=== PATIENT | male | born 1940 | race Caucasian/White ===

== ENCOUNTER 2016-07-21 17:48 | Inpatient (IN) | payer OTHER ==
[~2016-07-21] VITALS: Ht 167.6 cm; Wt 138.3 kg
[~2016-07-21 17:48] MED LIST: ALBUTEROL2.5 MG/3 M IH; AUGMENTIN875 MG PO; BREO ELLIPTA I1 EACH IH; CLEOCIN300 MG PO; CRESTOR40 MG PO; HYDROCHLOROTHIA25 MG PO; LISINOPRIL-HCT1 EAC3 PO; LISINOPRIL40 MG PO; MELOXICAM7.5 MG PO; METFORMIN HCL500 M1 PO; OXYCODONE-APAP1 EAC6 PO; PREDNISONE50 MG PO; VENTOLIN HFA18 GM IH; ZESTORETIC 20-1 EAC2 PO
[2016-07-21 18:16] LABS: HEMATOCRIT 31.2 % (38.0-50.0); MCH 23.6 PG (29.0-34.0); MCHC 30.1 G/DL (30.0-36.0); MCV 78.4 FL (86-99); MEAN PLAT.VOLUME 10.3 uM^3 (9.0-12.4); NRBC (%) 0.5 /100 WBC (0-0); PLATELET COUNT 354 K/uL (156-360); RBC DIS.WIDTH-SD 50.7 % (39-53); RED BLOOD COUNT 3.98 M/uL (4.00-5.50); WHITE BLOOD COUNT 17.7 K/uL (4.1-10.2)
[2016-07-21 18:29] LABS: CHLORIDE 107 mEq/L (99-109); POTASSIUM 4.5 mEq/L (3.7-5.4); SODIUM 142 mEq/L (136-147)
[2016-07-21 18:31] LABS: GLUCOSE 205 mg/dL (70-99)
[2016-07-21 18:32] LABS: ANION GAP 14 MEQ/L (2-14)
[2016-07-21 18:35] LABS: GFR ESTIMATE (CALCULATED) > 59 mL/min/; UREA NITROGEN (BUN) 69 mg/dL (9-23)
[2016-07-21 18:38] LABS: TROP-I INTERPRETATION NEGATIVE; TROPONIN-I 0.15 ng/mL (0.0-0.30)
[2016-07-21] MEDS ORDERED: CRESTOR40 MG PO (19:29)
[2016-07-21] MEDS ORDERED: OXYCODONE-APAP1 EACH PO (19:30)
[2016-07-21] MEDS ORDERED: NORTRIPTYLINE H50 MG PO (19:32)
[2016-07-21] MEDS ORDERED: PROAIR HFA8.5 GM IH (19:32)
[2016-07-21] MEDS ORDERED: CELEBREX200 MG PO (19:32)
[2016-07-21] MEDS ORDERED: CYMBALTA30 MG PO (19:33)
[2016-07-21 19:44] LABS: D-DIMER ELISA 0.67 mg/L FEU (< 0.57)
[2016-07-21 22:31] LABS: BASE EXCESS 1.9 mEq/L (-3 to +3); BICARBONATE 25.5 mEq/L (22-26); CARBOXY HGB 1.3 % (0-5); METHEMOGLOBIN 1.3 % (0-1.5); PCO2 35 mm Hg (35-45); PO2 67 mm Hg (80-100); pH 7.47 (7.35-7.45)
[2016-07-21 22:33] LABS: DEVICE ROOM AIR; FI02 21 %; SITE LR; TOTAL RESP RATE 16 resp/min
[2016-07-22] VITALS (28 sets, daily range): BP systolic 00–162; BP diastolic 00–140
[2016-07-22 00:51] LABS: HEMATOCRIT 29.4 % (38.0-50.0)
[2016-07-22 01:06] LABS: TOTAL BILIRUBIN 0.5 mg/dL (0.0-1.0)
[2016-07-22 01:07] LABS: ALKALINE PHOSPHATASE 39 IU/L (3-129)
[2016-07-22 01:09] LABS: DIRECT BILIRUBIN 0.2 mg/dL (0.0-0.3)
[2016-07-22 01:10] LABS: LIPASE 7 U/L (1.0-51.0)
[2016-07-22 01:17] LABS: TROP-I INTERPRETATION INDETERMINATE; TROPONIN-I 0.33 ng/mL (0.0-0.30)
[2016-07-22 05:08] LABS: METH RESISTANT S AUREUS PCR NEGATIVE (NEGATIVE)
[2016-07-22 05:35] LABS: TROP-I INTERPRETATION INDETERMINATE; TROPONIN-I 0.32 ng/mL (0.0-0.30)
[2016-07-22 05:41] LABS: PROBE CHECK PASS; SPECIMEN PROCESSING CONTROL PASS
[2016-07-22 05:44] LABS: ANION GAP 9 MEQ/L (2-14); CHLORIDE 107 MEQ/L (99-109); GFR ESTIMATE (CALCULATED) > 59 mL/min/; GLUCOSE 153 mg/dL (70-99); MAGNESIUM 2.4 mg/dl (1.3-2.7); POTASSIUM 5.2 MEQ/L (3.7-5.4); SAMPLE HEMOLYSIS CHECK 0; SAMPLE ICTERIC CHECK 0; SAMPLE LIPEMIA CHECK 0; SODIUM 143 MEQ/L (136-147); UREA NITROGEN (BUN) 70 mg/dL (9-23)
[2016-07-22 05:50] LABS: INTER. NORMALIZED RATIO 1.1; PROTHROMBIN TIME 11.4 (9.2-11.2); PTT 23.6 (25-32)
[2016-07-22 06:38] LABS: EOSINOPHIL (%) 0 % (0-5); HEMATOCRIT 30.8 % (38.0-50.0); IMMATURE GRANULOCYTE (%) 1.4 % (0.0-0.7); IMMATURE GRANULOCYTE COUNT 0.3 K/uL; INSTRUMENT ABS NEUTROPHIL CT 18.5 K/uL; LYMPHOCYTE COUNT 2.3 K/uL (1.0-2.8); MCH 24.7 PG (29.0-34.0); MCHC 31.2 G/DL (30.0-36.0); MCV 79.2 FL (86-99); MEAN PLAT.VOLUME 11.1 uM^3 (9.0-12.4); MONOCYTE (%) 10.6 % (3-12); MONOCYTE COUNT 2.5 K/uL (0-0.8); NEUTROPHIL (%) 78.2 % (45-76); NEUTROPHIL COUNT 18.5 K/uL (1.8-6.4); NRBC (%) 0.4 /100 WBC (0-0); PLATELET COUNT 294 K/uL (156-360); RBC DIS.WIDTH-CV 18.1 % (11.8-14.6); RBC DIS.WIDTH-SD 51.2 % (39-53); RED BLOOD COUNT 3.89 M/uL (4.00-5.50)
[2016-07-22 07:07] LABS: WHITE BLOOD COUNT 23.6 K/uL (4.1-10.2)
[2016-07-22 08:06] LABS: Estimated Average Glucose 134 mg/dL (70-123); HEMOGLOBIN A1c (GLYCOHEMOGLOB) 6.3 % HGB (Below 5.7)
[2016-07-22 12:07] LABS: HEMATOCRIT 25.2 % (38.0-50.0); MCV 80.8 FL (86-99); MEAN PLAT.VOLUME 11.5 uM^3 (9.0-12.4); NRBC (%) 0.7 /100 WBC (0-0); PLATELET COUNT 286 K/uL (156-360); RBC DIS.WIDTH-CV 18.2 % (11.8-14.6); RED BLOOD COUNT 3.12 M/uL (4.00-5.50); WHITE BLOOD COUNT 22.7 K/uL (4.1-10.2)
[2016-07-22 12:13] LABS: POINT-OF-CARE METER ID UU14162636
[2016-07-22 12:38] LABS: TROP-I INTERPRETATION INDETERMINATE; TROPONIN-I 0.32 ng/mL (0.0-0.30)
[2016-07-22 17:56] LABS: HEMATOCRIT 32.7 % (38.0-50.0); MCV 82.2 FL (86-99)
[2016-07-22 18:00] LABS: MCV 81.5 FL (86-99)
[2016-07-22 18:21] LABS: TROP-I INTERPRETATION NEGATIVE; TROPONIN-I 0.27 ng/mL (0.0-0.30)
[2016-07-22 18:31] LABS: POINT-OF-CARE METER ID UU13113803
[2016-07-22 23:17] LABS: HEMATOCRIT 31.5 % (38.0-50.0); MCV 82.9 FL (86-99)
[2016-07-23] VITALS (31 sets, daily range): BP systolic 101–166; BP diastolic 48–120
[2016-07-23 00:25] LABS: POINT-OF-CARE METER ID UU13113803
[2016-07-23 04:53] LABS: HEMATOCRIT 28.1 % (38.0-50.0); MCHC 32.5 G/DL (30.0-36.0); MCV 82.4 FL (86-99); MCV 83.1 FL (86-99); MEAN PLAT.VOLUME 10.8 uM^3 (9.0-12.4); NRBC (%) 1.6 /100 WBC (0-0); PLATELET COUNT 215 K/uL (156-360); RBC DIS.WIDTH-CV 17.9 % (11.8-14.6); RBC DIS.WIDTH-SD 52.9 % (39-53); RED BLOOD COUNT 3.37 M/uL (4.00-5.50); WHITE BLOOD COUNT 22.6 K/uL (4.1-10.2)
[2016-07-23 05:09] LABS: CHLORIDE 117 mEq/L (99-109); POTASSIUM 5.1 mEq/L (3.7-5.4); SODIUM 148 mEq/L (136-147)
[2016-07-23 05:10] LABS: MAGNESIUM 2.2 mg/dL (1.3-2.7)
[2016-07-23 05:11] LABS: GLUCOSE 173 mg/dL (70-99)
[2016-07-23 05:13] LABS: ANION GAP 10 MEQ/L (2-14)
[2016-07-23 05:15] LABS: GFR ESTIMATE (CALCULATED) > 59 mL/min/
[2016-07-23 05:16] LABS: UREA NITROGEN (BUN) 69 mg/dL (9-23)
[2016-07-23 13:01] LABS: HEMATOCRIT 33.8 % (38.0-50.0); MCV 84.3 FL (86-99)
[2016-07-23 13:01] LABS: POINT-OF-CARE METER ID UU14174217
[2016-07-23 18:08] LABS: POINT-OF-CARE METER ID UU14162636
[2016-07-23 18:19] LABS: HEMATOCRIT 32.5 % (38.0-50.0); MCV 84.6 FL (86-99)
[2016-07-23 22:20] LABS: POINT-OF-CARE METER ID UU14162636
[2016-07-23 23:47] LABS: HEMATOCRIT 30.7 % (38.0-50.0); MCV 84.6 FL (86-99)
[2016-07-24] VITALS (9 sets, daily range): BP systolic 100–142; BP diastolic 39–67
[2016-07-24 05:43] LABS: HEMATOCRIT 28.8 % (38.0-50.0); MCH 26.7 PG (29.0-34.0); MCHC 30.9 G/DL (30.0-36.0); MCV 86.5 FL (86-99); MEAN PLAT.VOLUME 11.6 uM^3 (9.0-12.4); NRBC (%) 1.8 /100 WBC (0-0); PLATELET COUNT 172 K/uL (156-360); RBC DIS.WIDTH-CV 18.1 % (11.8-14.6); RBC DIS.WIDTH-SD 55.8 % (39-53); RED BLOOD COUNT 3.33 M/uL (4.00-5.50); WHITE BLOOD COUNT 18.5 K/uL (4.1-10.2)
[2016-07-24 06:06] LABS: ANION GAP 7 MEQ/L (2-14); CHLORIDE 113 MEQ/L (99-109); GFR ESTIMATE (CALCULATED) > 59 mL/min/; GLUCOSE 126 mg/dL (70-99); MAGNESIUM 2.4 mg/dl (1.3-2.7); SAMPLE HEMOLYSIS CHECK 0; SAMPLE ICTERIC CHECK 0; SAMPLE LIPEMIA CHECK 0; SODIUM 146 MEQ/L (136-147); UREA NITROGEN (BUN) 42 mg/dL (9-23)
[2016-07-24 13:22] LABS: POINT-OF-CARE METER ID UU14162636; POINT-OF-CARE USER ID 606021424
[2016-07-24 18:21] LABS: POINT-OF-CARE USER ID 606021424
[2016-07-25] VITALS (12 sets, daily range): BP systolic 111–155; BP diastolic 47–70
[2016-07-25 03:04] LABS: GFR ESTIMATE (CALCULATED) > 59 mL/min/
[2016-07-25 03:31] LABS: VANCOMYCIN, TROUGH 16.7 MCG/ML (10-20)
[2016-07-25 06:09] LABS: HEMATOCRIT 26.3 % (38.0-50.0); MCH 26.8 PG (29.0-34.0); MCHC 30.8 G/DL (30.0-36.0); MCV 87.1 FL (86-99); MEAN PLAT.VOLUME 11.9 uM^3 (9.0-12.4); NRBC (%) 1.5 /100 WBC (0-0); PLATELET COUNT 177 K/uL (156-360); RBC DIS.WIDTH-CV 18.3 % (11.8-14.6); RBC DIS.WIDTH-SD 56.8 % (39-53); RED BLOOD COUNT 3.02 M/uL (4.00-5.50); WHITE BLOOD COUNT 18.1 K/uL (4.1-10.2)
[2016-07-25 06:27] LABS: ANION GAP 7 MEQ/L (2-14); CHLORIDE 110 MEQ/L (99-109); GFR ESTIMATE (CALCULATED) > 59 mL/min/; GLUCOSE 112 mg/dL (70-99); MAGNESIUM 2.5 mg/dl (1.3-2.7); POTASSIUM 4.7 MEQ/L (3.7-5.4); SAMPLE HEMOLYSIS CHECK 0; SAMPLE ICTERIC CHECK 0; SAMPLE LIPEMIA CHECK 0; SODIUM 142 MEQ/L (136-147); UREA NITROGEN (BUN) 31 mg/dL (9-23)
[2016-07-25 12:58] LABS: POINT-OF-CARE METER ID UU14174217
[2016-07-26] VITALS (11 sets, daily range): BP systolic 134–150; BP diastolic 59–79
[2016-07-26 07:20] LABS: MCH 27.6 PG (29.0-34.0); MCHC 31.9 G/DL (30.0-36.0); MCV 86.5 FL (86-99); MEAN PLAT.VOLUME 11.5 uM^3 (9.0-12.4); NRBC (%) 2.5 /100 WBC (0-0); PLATELET COUNT 225 K/uL (156-360); RBC DIS.WIDTH-CV 17.2 % (11.8-14.6); RBC DIS.WIDTH-SD 51.8 % (39-53); WHITE BLOOD COUNT 20.9 K/uL (4.1-10.2)
[2016-07-26 07:35] LABS: ANION GAP 8 MEQ/L (2-14); CHLORIDE 107 MEQ/L (99-109); GFR ESTIMATE (CALCULATED) > 59 mL/min/; GLUCOSE 99 mg/dL (70-99); MAGNESIUM 2.4 mg/dl (1.3-2.7); SAMPLE HEMOLYSIS CHECK 0; SAMPLE ICTERIC CHECK 0; SAMPLE LIPEMIA CHECK 0; SODIUM 141 MEQ/L (136-147); UREA NITROGEN (BUN) 26 mg/dL (9-23)
[2016-07-26 11:33] LABS: POINT-OF-CARE METER ID UU13113725
[2016-07-26 21:03] LABS: POINT-OF-CARE METER ID UU13113725
[2016-07-27 03:20] VITALS: BP 139/67
[2016-07-27 06:25] LABS: POINT-OF-CARE METER ID UU13113725
[2016-07-27 06:36] LABS: HEMATOCRIT 30.8 % (38.0-50.0); MCH 27.1 PG (29.0-34.0); MCHC 30.8 G/DL (30.0-36.0); MCV 87.7 FL (86-99); MEAN PLAT.VOLUME 10.9 uM^3 (9.0-12.4); NRBC (%) 2.7 /100 WBC (0-0); PLATELET COUNT 225 K/uL (156-360); RBC DIS.WIDTH-CV 17.6 % (11.8-14.6); RBC DIS.WIDTH-SD 54.4 % (39-53); RED BLOOD COUNT 3.51 M/uL (4.00-5.50); WHITE BLOOD COUNT 19.2 K/uL (4.1-10.2)
[2016-07-27 07:06] LABS: ANION GAP 8 MEQ/L (2-14); CHLORIDE 109 MEQ/L (99-109); GFR ESTIMATE (CALCULATED) > 59 mL/min/; GLUCOSE 114 mg/dL (70-99); MAGNESIUM 2.2 mg/dl (1.3-2.7); POTASSIUM 4.4 MEQ/L (3.7-5.4); SAMPLE HEMOLYSIS CHECK 0; SAMPLE ICTERIC CHECK 0; SAMPLE LIPEMIA CHECK 0; SODIUM 144 MEQ/L (136-147); UREA NITROGEN (BUN) 22 mg/dL (9-23)
[2016-07-27 07:14] VITALS: BP 158/84
[2016-07-27 11:33] LABS: POINT-OF-CARE METER ID UU13113725
[2016-07-27 16:09] VITALS: BP 139/65
[2016-07-27 16:31] LABS: POINT-OF-CARE METER ID UU13113725
[2016-07-27 19:23] VITALS: BP 143/70
[2016-07-27 23:29] VITALS: BP 141/71
[2016-07-28 06:15] LABS: POINT-OF-CARE METER ID UU13113725
[2016-07-28 06:56] LABS: HEMATOCRIT 33.6 % (38.0-50.0); MCH 26.4 PG (29.0-34.0); MCHC 30.1 G/DL (30.0-36.0); MEAN PLAT.VOLUME 10.7 uM^3 (9.0-12.4); PLATELET COUNT 258 K/uL (156-360); RBC DIS.WIDTH-CV 17.3 % (11.8-14.6); RBC DIS.WIDTH-SD 53.8 % (39-53); RED BLOOD COUNT 3.82 M/uL (4.00-5.50); WHITE BLOOD COUNT 18.4 K/uL (4.1-10.2)
[2016-07-28 07:14] LABS: ANION GAP 8 MEQ/L (2-14); CHLORIDE 107 MEQ/L (99-109); GFR ESTIMATE (CALCULATED) > 59 mL/min/; GLUCOSE 115 mg/dL (70-99); MAGNESIUM 2.3 mg/dl (1.3-2.7); POTASSIUM 3.7 MEQ/L (3.7-5.4); SAMPLE HEMOLYSIS CHECK 0; SAMPLE ICTERIC CHECK 0; SAMPLE LIPEMIA CHECK 0; SODIUM 143 MEQ/L (136-147); UREA NITROGEN (BUN) 17 mg/dL (9-23)
[2016-07-28 08:16] VITALS: BP 146/83
[2016-07-28] MEDS ORDERED: LOPRESSOR25 MG PO (11:02)
[2016-07-28] MEDS ORDERED: PANTOPRAZOLE SO40 MG PO (11:02)
== END 2016-07-28 13:31 | disposition home health service (06) | DRG 871 ==
LOC: EME 17:48 → 4WEST 07-22 00:01 → 5EAST 07-22 00:01 → EDOF 07-22 00:01 → 4WEST 07-22 02:49 → 5EAST 07-25 14:32
PROVIDERS: Emergency Medicine; Hospitalist; Internal Medicine; Internal Medicine Critical Care Medicine; Internal Medicine Gastroenterology; Internal Medicine Nephrology
DX: A41.9 Sepsis, unspecified organism (principal); K31.82 Dieulafoy lesion (hemorrhagic) of stomach and duodenum; I10 Essential (primary) hypertension; I89.0 Lymphedema, not elsewhere classified; K26.4 Chronic or unspecified duodenal ulcer with hemorrhage; Z68.42 Body mass index [BMI] 45.0-49.9, adult; J44.9 Chronic obstructive pulmonary disease, unspecified; E11.8 Type 2 diabetes mellitus with unspecified complications; J45.901 Unspecified asthma with (acute) exacerbation; N28.1 Cyst of kidney, acquired; I95.9 Hypotension, unspecified; E66.01 Morbid (severe) obesity due to excess calories; K92.1 Melena; E78.5 Hyperlipidemia, unspecified; I71.4 Abdominal aortic aneurysm, without rupture; I65.22 Occlusion and stenosis of left carotid artery; E87.0 Hyperosmolality and hypernatremia; E87.5 Hyperkalemia; E86.1 Hypovolemia; D23.70 Other benign neoplasm of skin of unspecified lower limb, including hip; F17.210 Nicotine dependence, cigarettes, uncomplicated; E55.9 Vitamin D deficiency, unspecified; I87.2 Venous insufficiency (chronic) (peripheral); D53.9 Nutritional anemia, unspecified; R55 Syncope and collapse; D72.829 Elevated white blood cell count, unspecified; K21.9 Gastro-esophageal reflux disease without esophagitis; G89.29 Other chronic pain; M54.9 Dorsalgia, unspecified; I25.10 Atherosclerotic heart disease of native coronary artery without angina pectoris; K42.9 Umbilical hernia without obstruction or gangrene; B95.8 Unspecified staphylococcus as the cause of diseases classified elsewhere; M17.0 Bilateral primary osteoarthritis of knee; Z91.14 Patient's other noncompliance with medication regimen; I25.2 Old myocardial infarction
CPT/HCPCS: 36600; 70450; 71010; 71275; 73560; 74176; 80048; 80076; 80202; 81003; 82272; 82565; 82803; 82948; 83036; 83690; 83735; 83880; 84100; 84484; 85014; 85018; 85025; 85027; 85379; 85610; 85730; 86900; 86901; 86920; 87040; 87077; 87186; 87641; 87801; 93005; 93306; 93970; 94640 76; 94760; 94799; 97530 GO; 97530 GP; 99202; 99281; 99283; A6212; C9113; J0456; J1815; J2270; J2765; J2920; J2930; J3370; J7030; J7040; J7050; J7070; J7512; P9016

== ENCOUNTER 2017-06-30 18:57 | Inpatient (IN) | payer OTHER ==
[~2017-06-30] VITALS: Ht 172.7 cm; Wt 135.8 kg
[~2017-06-30 18:57] MED LIST changes: +CELEBREX200 MG PO; +CYMBALTA30 MG PO; +LOPRESSOR25 MG PO; +NORTRIPTYLINE H50 MG PO; +OXYCODONE-APAP1 EACH PO; +PANTOPRAZOLE SO40 MG PO
[2017-06-30 19:38] LABS: HEMATOCRIT 38.3 % (38.0-50.0); HEMOGLOBIN 11.8 G/DL (12.5-16.6); MCH 23.6 PG (29.0-34.0); MCHC 30.8 G/DL (30.0-36.0); MCV 76.6 FL (86-99); PLATELET COUNT 360 K/uL (156-360); RBC DIS.WIDTH-CV 20.3 % (11.8-14.6); RBC DIS.WIDTH-SD 55.4 % (39-53)
[2017-06-30 20:02] LABS: TROP-I INTERPRETATION NEGATIVE; TROPONIN-I < 0.01 ng/mL (0.0-0.30)
[2017-06-30 20:07] LABS: ALBUMIN 3.9 g/dL (3.2-4.8); CHLORIDE 101 mEq/L (99-109); POTASSIUM 4.7 mEq/L (3.7-5.4); SODIUM 140 mEq/L (136-147)
[2017-06-30 20:09] LABS: GLUCOSE 149 mg/dL (70-99); TOTAL PROTEIN 6.9 g/dL (6.4-8.3)
[2017-06-30 20:11] LABS: TOTAL BILIRUBIN 0.4 mg/dL (0.0-1.0)
[2017-06-30 20:13] LABS: ALKALINE PHOSPHATASE 67 IU/L (3-129); GFR ESTIMATE (CALCULATED) > 59 mL/min/ (58.99-99999)
[2017-06-30 20:14] LABS: UREA NITROGEN (BUN) 17 mg/dL (9-23)
[2017-06-30 20:15] LABS: AST (GOT) 14 IU/L (2-34)
[2017-06-30 20:16] LABS: ALT (GPT) 15 IU/L (3-49)
[2017-06-30] MEDS ORDERED: AQUAPHOR OINTM105 GM TP (21:35)
[2017-06-30] MEDS ORDERED: COLACE100 MG PO (21:36)
[2017-06-30] MEDS ORDERED: COLD-FLU RELIE295 ML PO (21:43)
[2017-06-30] MEDS ORDERED: VITAMIN D2000 UNI1 PO (21:44)
[2017-06-30] MEDS ORDERED: METFORMIN HCL500 MG PO ×2 (21:48→21:49)
[2017-07-01 02:17] VITALS: BP 119/86
[2017-07-01 05:46] LABS: BASOPHIL (%) 0.2 % (0-1); EOSINOPHIL (%) 0 % (0-5); HEMATOCRIT 35.2 % (38.0-50.0); HEMOGLOBIN 10.7 G/DL (12.5-16.6); IMMATURE GRANULOCYTE (%) 0.8 % (0.0-0.7); LYMPHOCYTE (%) 2.5 % (15-42); LYMPHOCYTE COUNT 0.5 K/uL (1.0-2.8); MCH 23.1 PG (29.0-34.0); MCHC 30.4 G/DL (30.0-36.0); MONOCYTE (%) 5.7 % (3-12); MONOCYTE COUNT 1.2 K/uL (0-0.8); NEUTROPHIL (%) 90.8 % (45-76); NEUTROPHIL COUNT 19.6 K/uL (1.8-6.4); PLATELET COUNT 315 K/uL (156-360); RBC DIS.WIDTH-CV 20.3 % (11.8-14.6); RBC DIS.WIDTH-SD 54.8 % (39-53); RED BLOOD COUNT 4.63 M/uL (4.00-5.50); WHITE BLOOD COUNT 21.5 K/uL (4.1-10.2)
[2017-07-01 06:13] LABS: TROP-I INTERPRETATION NEGATIVE; TROPONIN-I < 0.01 ng/mL (0.0-0.30)
[2017-07-01 06:14] LABS: CHLORIDE 102 MEQ/L (99-109); CREATININE 0.8 MG/DL (0.6-1.3); GFR ESTIMATE (CALCULATED) > 59 mL/min/ (58.99-99999); GLUCOSE 131 mg/dL (70-99); POTASSIUM 4.3 MEQ/L (3.7-5.4); SODIUM 141 MEQ/L (136-147); UREA NITROGEN (BUN) 15 mg/dL (9-23)
[2017-07-01 07:30] VITALS: BP 146/61
[2017-07-01 11:57] VITALS: BP 124/59
[2017-07-01 16:20] VITALS: BP 136/62
[2017-07-01 19:45] VITALS: BP 153/65
[2017-07-01 23:00] VITALS: BP 133/63
[2017-07-02] VITALS (7 sets, daily range): BP systolic 126–150; BP diastolic 66–81
[2017-07-02 06:32] LABS: CHLORIDE 108 MEQ/L (99-109); CREATININE 0.8 MG/DL (0.6-1.3); GFR ESTIMATE (CALCULATED) > 59 mL/min/ (58.99-99999); GLUCOSE 147 mg/dL (70-99); POTASSIUM 4.1 MEQ/L (3.7-5.4); SODIUM 142 MEQ/L (136-147); UREA NITROGEN (BUN) 14 mg/dL (9-23)
[2017-07-02 06:37] LABS: BASOPHIL (%) 0.1 % (0-1); EOSINOPHIL (%) 0 % (0-5); HEMATOCRIT 36.3 % (38.0-50.0); HEMOGLOBIN 11.1 G/DL (12.5-16.6); IMMATURE GRANULOCYTE (%) 1.4 % (0.0-0.7); LYMPHOCYTE (%) 5.4 % (15-42); LYMPHOCYTE COUNT 0.8 K/uL (1.0-2.8); MCH 23.2 PG (29.0-34.0); MCHC 30.6 G/DL (30.0-36.0); MCV 75.9 FL (86-99); MONOCYTE (%) 4.1 % (3-12); MONOCYTE COUNT 0.6 K/uL (0-0.8); NEUTROPHIL COUNT 12.8 K/uL (1.8-6.4); PLATELET COUNT 325 K/uL (156-360); RBC DIS.WIDTH-CV 20.8 % (11.8-14.6); RBC DIS.WIDTH-SD 55.8 % (39-53); RED BLOOD COUNT 4.78 M/uL (4.00-5.50); WHITE BLOOD COUNT 14.4 K/uL (4.1-10.2)
[2017-07-03 03:58] VITALS: BP 140/67
[2017-07-03 07:08] VITALS: BP 136/65
[2017-07-03 11:30] VITALS: BP 132/66
[2017-07-03 12:18] LABS: HEMATOCRIT 37.6 % (38.0-50.0); HEMOGLOBIN 11.2 G/DL (12.5-16.6); MCH 22.9 PG (29.0-34.0); MCHC 29.8 G/DL (30.0-36.0); MCV 76.7 FL (86-99); PLATELET COUNT 355 K/uL (156-360); RBC DIS.WIDTH-CV 21.1 % (11.8-14.6); RBC DIS.WIDTH-SD 57.3 % (39-53); WHITE BLOOD COUNT 19.2 K/uL (4.1-10.2)
[2017-07-03 15:00] VITALS: BP 137/87
[2017-07-03 19:55] VITALS: BP 157/74
[2017-07-03 22:46] VITALS: BP 146/70
[2017-07-04 06:32] LABS: HEMATOCRIT 36.2 % (38.0-50.0); HEMOGLOBIN 10.8 G/DL (12.5-16.6); MCH 23.1 PG (29.0-34.0); MCHC 29.8 G/DL (30.0-36.0); MCV 77.5 FL (86-99); PLATELET COUNT 335 K/uL (156-360); RBC DIS.WIDTH-CV 20.9 % (11.8-14.6); RBC DIS.WIDTH-SD 56.6 % (39-53); RED BLOOD COUNT 4.67 M/uL (4.00-5.50); WHITE BLOOD COUNT 15.9 K/uL (4.1-10.2)
[2017-07-04 07:12] LABS: ALBUMIN 3.1 G/DL (3.2-4.8); CHLORIDE 104 MEQ/L (99-109); CREATININE 0.8 MG/DL (0.6-1.3); GFR ESTIMATE (CALCULATED) > 59 mL/min/ (58.99-99999); PHOSPHORUS 3.2 mg/dL (2.5-4.9); SODIUM 143 MEQ/L (136-147); UREA NITROGEN (BUN) 19 mg/dL (9-23)
[2017-07-04 07:15] LABS: GLUCOSE 80 mg/dL (70-99); POTASSIUM 7.4 MEQ/L (3.7-5.4)
[2017-07-04 07:25] VITALS: BP 146/68
[2017-07-04 11:14] VITALS: BP 118/58
[2017-07-04 16:47] VITALS: BP 152/65
[2017-07-04 20:24] VITALS: BP 165/76
[2017-07-04 23:48] VITALS: BP 168/73
[2017-07-05 03:27] VITALS: BP 145/83
[2017-07-05 05:59] LABS: BASOPHIL (%) 0.7 % (0-1); BASOPHIL COUNT 0.1 K/uL (0-0.1); EOSINOPHIL (%) 1.5 % (0-5); EOSINOPHIL COUNT 0.1 K/uL (0-0.3); HEMOGLOBIN 10.5 G/DL (12.5-16.6); IMMATURE GRANULOCYTE (%) 3.7 % (0.0-0.7); LYMPHOCYTE (%) 28.8 % (15-42); LYMPHOCYTE COUNT 2.4 K/uL (1.0-2.8); MCH 22.9 PG (29.0-34.0); MCV 76.4 FL (86-99); MONOCYTE (%) 10.8 % (3-12); MONOCYTE COUNT 0.9 K/uL (0-0.8); NEUTROPHIL (%) 54.5 % (45-76); NEUTROPHIL COUNT 4.6 K/uL (1.8-6.4); NRBC (%) 0.2 /100 WBC (0-0); PLATELET COUNT 323 K/uL (156-360); RBC DIS.WIDTH-CV 20.5 % (11.8-14.6); RBC DIS.WIDTH-SD 55.9 % (39-53); RED BLOOD COUNT 4.58 M/uL (4.00-5.50); WHITE BLOOD COUNT 8.4 K/uL (4.1-10.2)
[2017-07-05 06:20] LABS: ALBUMIN 3.2 G/DL (3.2-4.8); CHLORIDE 106 MEQ/L (99-109); CREATININE 0.9 MG/DL (0.6-1.3); GFR ESTIMATE (CALCULATED) > 59 mL/min/ (58.99-99999); POTASSIUM 3.6 MEQ/L (3.7-5.4); SODIUM 144 MEQ/L (136-147); UREA NITROGEN (BUN) 16 mg/dL (9-23)
[2017-07-05 06:27] LABS: GLUCOSE 115 mg/dL (70-99)
[2017-07-05 07:06] VITALS: BP 135/71
[2017-07-05 11:00] VITALS: BP 128/68
[2017-07-05 15:25] VITALS: BP 140/66
[2017-07-05 19:00] VITALS: BP 148/65
[2017-07-05 23:05] VITALS: BP 129/58
[2017-07-06 03:34] VITALS: BP 142/67
[2017-07-06 07:10] VITALS: BP 137/62
[2017-07-06] MEDS ORDERED: AMOXICILLIN875 MG PO (07:55)
== END 2017-07-06 11:33 | disposition home health service (06) | DRG 872 ==
LOC: EME 18:57 → EDOF 22:57 → 2EAST 22:57 → 4EAST 22:57 → ENRESERV 23:01 → 2EAST 07-01 01:37 → ENRESERV 07-01 12:56 → 4EAST 07-01 19:51 → ENRESERV 07-03 20:25 → 2EAST 07-03 22:28 → ENPENDDIS 07-06 → 2EAST 07-06 11:33
PROVIDERS: Emergency Medicine Emergency Medical Services; Family Medicine; Internal Medicine; Internal Medicine Gastroenterology; Physician Assistant; Student in an Organized Health Care Education/Training Program
DX: A40.1 Sepsis due to streptococcus, group B (principal); J44.1 Chronic obstructive pulmonary disease with (acute) exacerbation; L03.116 Cellulitis of left lower limb; L03.115 Cellulitis of right lower limb; E66.01 Morbid (severe) obesity due to excess calories; I83.015 Varicose veins of right lower extremity with ulcer other part of foot; L97.518 Non-pressure chronic ulcer of other part of right foot with other specified severity; I83.018 Varicose veins of right lower extremity with ulcer other part of lower leg; L97.818 Non-pressure chronic ulcer of other part of right lower leg with other specified severity; E78.5 Hyperlipidemia, unspecified; Z68.42 Body mass index [BMI] 45.0-49.9, adult; J44.0 Chronic obstructive pulmonary disease with (acute) lower respiratory infection; J20.9 Acute bronchitis, unspecified; I89.0 Lymphedema, not elsewhere classified; Z87.11 Personal history of peptic ulcer disease; D64.9 Anemia, unspecified; F17.200 Nicotine dependence, unspecified, uncomplicated; I10 Essential (primary) hypertension; R09.02 Hypoxemia; J98.11 Atelectasis; Z74.01 Bed confinement status; Z91.19 Patient's noncompliance with other medical treatment and regimen; K21.9 Gastro-esophageal reflux disease without esophagitis; Z79.899 Other long term (current) drug therapy; Z79.84 Long term (current) use of oral hypoglycemic drugs; E11.622 Type 2 diabetes mellitus with other skin ulcer
CPT/HCPCS: 71045; 71275; 80048; 80053; 80069; 81003; 82948; 83605; 83690; 83880; 84132 91; 84295; 84484; 85025; 85027; 87040; 87070; 87077; 87186; 87205; 87449; 87641; 87801; 93005; 94640; 94640 76; 94760; 94799; 97530 GO; 99202; 99212; 99281; 99285; A6212; J0456; J1644; J1815; J2540; J2930; J3370; J7030; J7040; J7050

== ENCOUNTER 2017-11-01 07:46 | Inpatient (IN) | payer OTHER ==
[~2017-11-01] VITALS: Ht 172.7 cm; Wt 132.3 kg
[~2017-11-01 07:46] MED LIST changes: +AMOXICILLIN875 MG PO; +AQUAPHOR OINTM105 GM TP; +COLACE100 MG PO; +COLD-FLU RELIE295 ML PO; +VITAMIN D2000 UNI1 PO
[2017-11-01 07:54] LABS: COMMENTS - BLOOD GASES A+C+; CONTINUOUS POS AIRWAY PRESSURE 5 cm H2O; DEVICE 840 MASK; FI02 70 %; MODE SPONT; PRES. SUPPORT 13 CM/H2O; SITE RR; TOTAL RESP RATE 32 resp/min; pH 7.38 (7.35-7.45)
[2017-11-01 07:55] LABS: BASE EXCESS 1.1 mEq/L (-3 to +3); BICARBONATE 26.6 mEq/L (22-26); CARBOXY HGB 0.4 % (0-5); METHEMOGLOBIN 0.8 % (0-1.5); PCO2 45 mm Hg (35-45); PO2 175 mm Hg (80-100)
[2017-11-01 08:43] LABS: BASOPHIL (%) 0.2 % (0-1); BASOPHIL COUNT 0.1 K/uL (0-0.1); EOSINOPHIL (%) 0 % (0-5); HEMATOCRIT 36.7 % (38.0-50.0); HEMOGLOBIN 11.3 G/DL (12.5-16.6); IMMATURE GRANULOCYTE (%) 0.9 % (0.0-0.7); LYMPHOCYTE (%) 1.8 % (15-42); LYMPHOCYTE COUNT 0.5 K/uL (1.0-2.8); MCH 23.1 PG (29.0-34.0); MCHC 30.8 G/DL (30.0-36.0); MCV 75.1 FL (86-99); MONOCYTE (%) 5.1 % (3-12); MONOCYTE COUNT 1.3 K/uL (0-0.8); NEUTROPHIL COUNT 22.7 K/uL (1.8-6.4); PLATELET COUNT 357 K/uL (156-360); RBC DIS.WIDTH-CV 19.7 % (11.8-14.6); RBC DIS.WIDTH-SD 51.9 % (39-53); RED BLOOD COUNT 4.89 M/uL (4.00-5.50); WHITE BLOOD COUNT 24.6 K/uL (4.1-10.2)
[2017-11-01 08:49] LABS: INTER. NORMALIZED RATIO 1.2
[2017-11-01 08:51] LABS: PTT 26.3 SEC (25-37)
[2017-11-01 08:53] LABS: ALBUMIN 3.9 g/dL (3.2-4.8); CHLORIDE 100 mEq/L (99-109); POTASSIUM 4.7 mEq/L (3.7-5.4); SODIUM 139 mEq/L (136-147)
[2017-11-01 08:55] LABS: GLUCOSE 157 mg/dL (70-99)
[2017-11-01 08:55] LABS: APPEARANCE SL.HAZY ((CLEAR)); BILIRUBIN NEGATIVE; BLOOD LARGE; COLOR YELLOW ((YELLOW)); GLUCOSE (STRIP) NEGATIVE; KETONES NEGATIVE; LEUKOCYTES NEGATIVE; NITRITE NEGATIVE; PROTEIN (STRIP) 100; SPECIFIC GRAVITY 1.021 (1.000-1.030); UROBILINOGEN 0.2 MG/DL (0.2-1.0)
[2017-11-01 08:56] LABS: TOTAL PROTEIN 7.2 g/dL (6.4-8.3)
[2017-11-01 08:57] LABS: TOTAL BILIRUBIN 0.5 mg/dL (0.0-1.0)
[2017-11-01 08:59] LABS: ALKALINE PHOSPHATASE 57 IU/L (3-129); CREATININE 1.2 mg/dL (0.6-1.3); GFR ESTIMATE (CALCULATED) > 59 mL/min/ (58.99-99999)
[2017-11-01 09:02] LABS: ALT (GPT) 19 IU/L (3-49); TOTAL CK 1719 IU/L (1-294)
[2017-11-01 09:03] LABS: CREATINE KINASE 1719 IU/L (1-294)
[2017-11-01 09:05] LABS: TROP-I INTERPRETATION NEGATIVE; TROPONIN-I < 0.01 ng/mL (0.0-0.30)
[2017-11-01 09:09] LABS: CK-MB 9.1 ng/mL (0.0-4.9); CKMB RELATIVE INDEX 0.5 (0.0-3.9)
[2017-11-01 09:10] LABS: BACTERIA NONE SEEN /HPF; EPITHELIAL CELLS NONE SEEN /HPF; MUCUS TRACE /LPF; RED BLOOD CELLS TNTC /HPF (0-5); UCUL ADDED? YES; WHITE BLOOD CELLS 0-5 /HPF (0-5)
[2017-11-01 09:52] LABS: UREA NITROGEN (BUN) 21 mg/dL (9-23)
[2017-11-01 10:04] LABS: AST (GOT) 35 IU/L (2-34)
[2017-11-01] MEDS ORDERED: PROTONIX40 MG PO (10:12)
[2017-11-01] MEDS ORDERED: SYMBICORT60 INHALAT IH (10:14)
[2017-11-01 12:00] VITALS: BP 134/79
[2017-11-01 15:34] VITALS: BP 140/68
[2017-11-01 20:20] VITALS: BP 132/67
[2017-11-02 01:00] VITALS: BP 140/60
[2017-11-02 04:30] VITALS: BP 134/69
[2017-11-02 08:40] VITALS: BP 125/69
[2017-11-02 09:00] LABS: BASOPHIL (%) 0.1 % (0-1); EOSINOPHIL (%) 0 % (0-5); HEMATOCRIT 33.7 % (38.0-50.0); HEMOGLOBIN 10.3 G/DL (12.5-16.6); LYMPHOCYTE (%) 3.5 % (15-42); LYMPHOCYTE COUNT 0.7 K/uL (1.0-2.8); MCHC 30.6 G/DL (30.0-36.0); MCV 75.2 FL (86-99); MONOCYTE (%) 6.3 % (3-12); MONOCYTE COUNT 1.3 K/uL (0-0.8); NEUTROPHIL (%) 89.1 % (45-76); NEUTROPHIL COUNT 18.7 K/uL (1.8-6.4); PLATELET COUNT 300 K/uL (156-360); RBC DIS.WIDTH-CV 19.8 % (11.8-14.6); RBC DIS.WIDTH-SD 52.8 % (39-53); RED BLOOD COUNT 4.48 M/uL (4.00-5.50)
[2017-11-02 09:32] LABS: CHLORIDE 105 MEQ/L (99-109); CREATININE 0.9 MG/DL (0.6-1.3); GFR ESTIMATE (CALCULATED) > 59 mL/min/ (58.99-99999); GLUCOSE 127 mg/dL (70-99); POTASSIUM 4.7 MEQ/L (3.7-5.4); SODIUM 142 MEQ/L (136-147); UREA NITROGEN (BUN) 16 mg/dL (9-23)
[2017-11-02 09:36] LABS: CREATINE KINASE 1634 IU/L (1-294)
[2017-11-02 11:50] VITALS: BP 125/64
[2017-11-02 15:59] VITALS: BP 151/81
[2017-11-02 20:30] VITALS: BP 184/75
[2017-11-03] VITALS (8 sets, daily range): BP systolic 134–155; BP diastolic 69–84
[2017-11-03 05:30] LABS: BASOPHIL (%) 0.2 % (0-1); EOSINOPHIL (%) 0 % (0-5); HEMATOCRIT 33.9 % (38.0-50.0); HEMOGLOBIN 10.1 G/DL (12.5-16.6); IMMATURE GRANULOCYTE (%) 1.4 % (0.0-0.7); LYMPHOCYTE (%) 4.3 % (15-42); LYMPHOCYTE COUNT 0.8 K/uL (1.0-2.8); MCH 22.5 PG (29.0-34.0); MCHC 29.8 G/DL (30.0-36.0); MCV 75.7 FL (86-99); MONOCYTE (%) 5.2 % (3-12); MONOCYTE COUNT 0.9 K/uL (0-0.8); NEUTROPHIL (%) 88.9 % (45-76); NEUTROPHIL COUNT 15.7 K/uL (1.8-6.4); NRBC (%) 0.1 /100 WBC (0-0); PLATELET COUNT 326 K/uL (156-360); RBC DIS.WIDTH-CV 19.9 % (11.8-14.6); RBC DIS.WIDTH-SD 53.3 % (39-53); RED BLOOD COUNT 4.48 M/uL (4.00-5.50); WHITE BLOOD COUNT 17.6 K/uL (4.1-10.2)
[2017-11-03 06:16] LABS: CHLORIDE 108 MEQ/L (99-109); CREATININE 0.9 MG/DL (0.6-1.3); GFR ESTIMATE (CALCULATED) > 59 mL/min/ (58.99-99999); GLUCOSE 151 mg/dL (70-99); POTASSIUM 4.8 MEQ/L (3.7-5.4); SODIUM 142 MEQ/L (136-147); UREA NITROGEN (BUN) 22 mg/dL (9-23)
[2017-11-04] VITALS (7 sets, daily range): BP systolic 145–184; BP diastolic 75–95
[2017-11-05 05:47] LABS: HEMATOCRIT 36.5 % (38.0-50.0); HEMOGLOBIN 10.7 G/DL (12.5-16.6); MCH 22.3 PG (29.0-34.0); MCHC 29.3 G/DL (30.0-36.0); NRBC (%) 0.3 /100 WBC (0-0); PLATELET COUNT 368 K/uL (156-360); RBC DIS.WIDTH-CV 20.2 % (11.8-14.6); RBC DIS.WIDTH-SD 53.8 % (39-53); WHITE BLOOD COUNT 16.5 K/uL (4.1-10.2)
[2017-11-05 06:19] LABS: CHLORIDE 108 MEQ/L (99-109); CREATININE 0.9 MG/DL (0.6-1.3); GFR ESTIMATE (CALCULATED) > 59 mL/min/ (58.99-99999); POTASSIUM 4.2 MEQ/L (3.7-5.4); SODIUM 146 MEQ/L (136-147); UREA NITROGEN (BUN) 22 mg/dL (9-23)
[2017-11-05 06:22] LABS: GLUCOSE 90 mg/dL (70-99)
[2017-11-05 07:00] LABS: ABS NEUTROPHIL COUNT 13.6; ANISOCYTOSIS 1+; BAND NEUTROPHILS 5.2 % (0-8.0); EOSINOPHIL ABS CT 0; HYPOCHROMASIA 1+; LYMPHOCYTES 9.6 % (15.0-45.0); MONOCYTES 6.1 % (0-9.0); MYELOCYTES 1.7 %; PLAT.SUFFICIENCY DECREASED; SEG.NEUTROPHILS 77.4 % (46.0-76.0)
[2017-11-05 07:20] VITALS: BP 185/79
[2017-11-05 13:56] VITALS: BP 148/76
[2017-11-05 20:09] VITALS: BP 170/75
[2017-11-06] VITALS: BP 173/84
[2017-11-06 04:51] VITALS: BP 160/72
[2017-11-06 06:05] LABS: HEMATOCRIT 33.6 % (38.0-50.0); HEMOGLOBIN 10.4 G/DL (12.5-16.6); MCH 23.1 PG (29.0-34.0); MCV 74.7 FL (86-99); NRBC (%) 0.4 /100 WBC (0-0); PLATELET COUNT 348 K/uL (156-360); RBC DIS.WIDTH-CV 19.8 % (11.8-14.6); RBC DIS.WIDTH-SD 51.8 % (39-53); WHITE BLOOD COUNT 16.4 K/uL (4.1-10.2)
[2017-11-06 06:23] LABS: CHLORIDE 102 MEQ/L (99-109); CREATININE 0.9 MG/DL (0.6-1.3); GFR ESTIMATE (CALCULATED) > 59 mL/min/ (58.99-99999); GLUCOSE 104 mg/dL (70-99); POTASSIUM 4.2 MEQ/L (3.7-5.4); SODIUM 142 MEQ/L (136-147); UREA NITROGEN (BUN) 16 mg/dL (9-23)
[2017-11-06 06:29] LABS: ABS NEUTROPHIL COUNT 11.8; ANISOCYTOSIS 1+; ATYPICAL LYMPHOCYTE 4.4 %; BAND NEUTROPHILS 1.8 % (0-8.0); EOSINOPHIL ABS CT 0.3; EOSINOPHILS 1.8 % (0-5.0); LYMPHOCYTES 8.8 % (15.0-45.0); METAMYELOCYTES 0.9 %; MICROCYTOSIS 1+; MYELOCYTES 4.4 %; PLAT.SUFFICIENCY ADEQUATE; SEG.NEUTROPHILS 69.9 % (46.0-76.0)
[2017-11-06 07:47] VITALS: BP 146/79
[2017-11-06 12:00] VITALS: BP 142/79
[2017-11-06 19:45] VITALS: BP 139/73
[2017-11-07] VITALS (7 sets, daily range): BP systolic 119–148; BP diastolic 65–75
[2017-11-07 06:38] LABS: HEMATOCRIT 37.8 % (38.0-50.0); HEMOGLOBIN 11.5 G/DL (12.5-16.6); MCHC 30.4 G/DL (30.0-36.0); MCV 75.6 FL (86-99); NRBC (%) 0.5 /100 WBC (0-0); WHITE BLOOD COUNT 16.3 K/uL (4.1-10.2)
[2017-11-07 06:41] LABS: CHLORIDE 101 MEQ/L (99-109); CREATININE 1.1 MG/DL (0.6-1.3); GFR ESTIMATE (CALCULATED) > 59 mL/min/ (58.99-99999); GLUCOSE 100 mg/dL (70-99); SODIUM 144 MEQ/L (136-147); UREA NITROGEN (BUN) 22 mg/dL (9-23)
[2017-11-07 06:49] LABS: ABS NEUTROPHIL COUNT 10.3; ANISOCYTOSIS 1+; BAND NEUTROPHILS 2.6 % (0-8.0); BURR CELLS 1+; EOSINOPHIL ABS CT 0.1; EOSINOPHILS 0.9 % (0-5.0); LYMPHOCYTES 23.7 % (15.0-45.0); METAMYELOCYTES 1.7 %; MICROCYTOSIS 1+; MONOCYTES 5.3 % (0-9.0); MYELOCYTES 5.3 %; OVALOCYTES 1+; PLAT.SUFFICIENCY INCREASED; PLATELET COUNT 402 K/uL (156-360); POLYCHROMASIA 1+; SEG.NEUTROPHILS 60.5 % (46.0-76.0); TEAR DROP CELLS 2+
[2017-11-08 04:00] VITALS: BP 128/70
[2017-11-08 07:40] VITALS: BP 129/71
[2017-11-08 08:36] LABS: HEMATOCRIT 39.9 % (38.0-50.0); HEMOGLOBIN 11.8 G/DL (12.5-16.6); MCH 22.5 PG (29.0-34.0); MCHC 29.6 G/DL (30.0-36.0); MCV 76.1 FL (86-99); NRBC (%) 0.3 /100 WBC (0-0); PLATELET COUNT 393 K/uL (156-360); RBC DIS.WIDTH-CV 20.3 % (11.8-14.6); RBC DIS.WIDTH-SD 53.4 % (39-53); RED BLOOD COUNT 5.24 M/uL (4.00-5.50); WHITE BLOOD COUNT 16.7 K/uL (4.1-10.2)
[2017-11-08 08:52] LABS: CHLORIDE 102 MEQ/L (99-109); GFR ESTIMATE (CALCULATED) > 59 mL/min/ (58.99-99999); GLUCOSE 89 mg/dL (70-99); POTASSIUM 4.3 MEQ/L (3.7-5.4); SODIUM 142 MEQ/L (136-147); UREA NITROGEN (BUN) 24 mg/dL (9-23)
[2017-11-08 11:26] VITALS: BP 145/64
[2017-11-08] MEDS ORDERED: PREDNISONE10 MG PO (12:28)
[2017-11-08] MEDS ORDERED: AMOXICILLIN875 MG PO (12:28)
== END 2017-11-08 14:03 | disposition home health service (06) | DRG 871 ==
LOC: EME 07:46 → ENRESERV 10:44 → 4EAST 10:45 → EDOF 10:45 → 4EAST 11:46 → ENRESERV 11-04 12:51 → 5SOUTH 11-04 15:22 → ENPENDDIS 11-08 12:37 → 5SOUTH 11-08 14:03
PROVIDERS: Emergency Medicine; Hospitalist; Physician Assistant; Physician Assistant Medical; Student in an Organized Health Care Education/Training Program
PROC: 5A09357 Assistance with Respiratory Ventilation, Less than 24 Consecutive Hours, Continuous Positive Airway Pressure (ICD-10-PCS; principal; 2017-11-01)
DX: A40.9 Streptococcal sepsis, unspecified (principal); J96.01 Acute respiratory failure with hypoxia; L97.818 Non-pressure chronic ulcer of other part of right lower leg with other specified severity; L03.115 Cellulitis of right lower limb; J44.1 Chronic obstructive pulmonary disease with (acute) exacerbation; R65.20 Severe sepsis without septic shock; E11.622 Type 2 diabetes mellitus with other skin ulcer; M62.82 Rhabdomyolysis; I87.2 Venous insufficiency (chronic) (peripheral); I87.8 Other specified disorders of veins; I89.0 Lymphedema, not elsewhere classified; S51.002A Unspecified open wound of left elbow, initial encounter; I10 Essential (primary) hypertension; E78.5 Hyperlipidemia, unspecified; G89.4 Chronic pain syndrome; F17.200 Nicotine dependence, unspecified, uncomplicated; E66.01 Morbid (severe) obesity due to excess calories; Z68.41 Body mass index [BMI] 40.0-44.9, adult; Z91.81 History of falling; Z79.51 Long term (current) use of inhaled steroids; Z79.84 Long term (current) use of oral hypoglycemic drugs; Z22.322 Carrier or suspected carrier of Methicillin resistant Staphylococcus aureus
CPT/HCPCS: 36600; 70450; 71045; 71046; 71275; 72125; 73502; 73560; 74176; 80048; 80053; 80202; 81003; 82550; 82553; 82948; 83605; 83880; 84484; 85025; 85027; 85379; 85610; 85730; 87040; 87070; 87077; 87086; 87205; 87449; 87801; 93005; 93926; 94002; 94640; 94760; 94799; 99281; 99285; A6212; J0690; J0696; J1650; J1815; J2270; J2543; J2920; J2930; J3370; J7030; J7040; J7512; S0028